=== PATIENT | male | born 1930 | race Caucasian/White ===

== ENCOUNTER 2018-05-12 03:55 | Emergency (ER) | payer MEDICARE, OTHER ==
[~2018-05-12] VITALS: Ht 172.7 cm; Wt 89.4 kg
--- NOTE | 2018-05-12 04:09 | NUR ---
Pt bib rescue 88 with c/o chest pain & shortness of breath that woke him up from sleep at 0100 today. Pt denies chest pain/shortness of breath at this time. Pt states he vomited at home. Pt denies GI/ distress. Pt placed on monitor. at bedside.
--- NOTE | 2018-05-12 04:21 | NUR ---
Dr. Steel speaking to Dr. Elizabeth (Cherry Pitter)
[2018-05-12 04:26] LABS: BASOPHILS # (AUTO) 0.1 K/uL (0.0-8.0); BASOPHILS % (AUTO) 0.8 % (0.0-2.0); EOSINOPHILS # (AUTO) 0.5 K/uL (0.0-0.7); HEMATOCRIT 38.2 % (36.7-47.1); LYMPHOCYTES # (AUTO) 1.1 K/uL (20.0-40.0); LYMPHOCYTES % (AUTO) 12.9 % (20.5-51.5); MEAN CORPUSCULAR HEMOGLOBIN 29.9 uug (23.8-33.4); MEAN CORPUSCULAR HGB CONC 34 g/dL (32.5-36.3); MEAN CORPUSCULAR VOLUME 87.9 fL (73.0-96.2); MONOCYTES # (AUTO) 0.5 K/uL (2.0-10.0); MONOCYTES % (AUTO) 6.4 % (0.0-11.0); NEUTROPHILS # (AUTO) 6.2 K/uL (1.8-8.9); NEUTROPHILS % (AUTO) 73.9 % (38.5-71.5); PLATELET COUNT (AUTO) 187 K/uL (152-348); RED BLOOD CELL COUNT(AUTO) 4.35 MIL/uL (4.06-5.63); WHITE BLOOD COUNT (AUTO) 8.4 K/uL (3.6-10.2)
--- NOTE | 2018-05-12 04:27 | NUR ---
Dr. Elizabeth speaking to Dr Steel on telephone.
[2018-05-12] MEDS ORDERED: CHOL200078 PO (04:34)
[2018-05-12] MEDS ORDERED: AMLO5TAB9 PO (04:34)
[2018-05-12] MEDS ORDERED: CLOP75TA33 PO (04:34)
[2018-05-12] MEDS ORDERED: GLIM1TAB3 PO (04:34)
[2018-05-12] MEDS ORDERED: LOSA50TA39 PO (04:34)
[2018-05-12] MEDS ORDERED: ATOR10TA PO (04:34)
[2018-05-12 04:40] LABS: ALANINE AMINOTRANSFERASE 12 U/L (16-63); ALKALINE PHOSPHATASE 85 U/L (50-136); ASPARTATE AMINOTRANSFERASE 11 U/L (15-37); BILIRUBIN,DIRECT 0.1 mg/dL (0.0-0.2); BILIRUBIN,TOTAL 0.4 mg/dL (0.2-1.0); CARBON DIOXIDE 26 mmol/L (21-32); CHLORIDE 107 mmol/L (98-107); CREATININE 2.1 mg/dL (0.6-1.3); GLUCOSE 138 mg/dL (74-106); POTASSIUM 4.3 mmol/L (3.5-5.1); TOTAL PROTEIN, SERUM 6.5 g/dL (6.4-8.2); UREA NITROGEN, BLOOD 36 mg/dL (7-18)
[2018-05-12] MEDS ORDERED: FUROSEMIDE 20 MG/2 ML VIAL IV ONE (05:00)
[2018-05-12] MEDS ORDERED: HEPARIN SODIUM,PORCINE 5,000 UNITS/ML VIAL IV ONE ×3 (05:00→05:15)
[2018-05-12] MEDS ORDERED: ASPIRIN 81 MG TAB.CHEW ONE (05:09)
[2018-05-12] MEDS ORDERED: HEPARIN SODIUM,PORCINE 5,000 UNITS/ML VIAL ONE (05:10)
[2018-05-12] MEDS ORDERED: FUROSEMIDE 40 MG/4 ML VIAL ONE (05:10)
[2018-05-12] MEDS: HEPARIN/D5W DRIP 500 ML IV ONE ×2 (05:10→05:38)
[2018-05-12] MEDS: ASPIRIN EC 81 MG TABLET.DR PO SCH ×2 (05:16→05:18)
[2018-05-12] MEDS ORDERED: HEPARIN/D5W DRIP 500 ML ONE (05:20)
--- NOTE | 2018-05-12 05:37 | NUR ---
Dr. Elizabeth speaking to Dr. Steel on telephone suggesting pt to be transferred to [facility] for higher level of care.
--- NOTE | 2018-05-12 05:43 | NUR ---
Dr. Steel on phone with Dr. Hernández (cook station for Dr. Soriano, head loft worker) who states to send pt to [facility].
--- NOTE | 2018-05-12 05:47 | NUR ---
Jade Tello paving supervisor on telephone saying she will get hold of hospitalist.
--- NOTE | 2018-05-12 06:06 | NUR ---
Dr. Steel speaking to Dr. Maciel Ortiz who accepted the pt. Pending call back from Evie Tello melter supervisor with transfer information
[2018-05-12 06:15] LABS: *BILIRUBIN,URIN NEGATIVE (NEGATIVE); *BLOOD, URINE Trace-intact (NEGATIVE); *CLARITY,URINE CLEAR (CLEAR); *COLOR,URINE YELLOW (YELLOW); *KETONES,URINE NEGATIVE (NEGATIVE); *PROTEIN,URINE 2+ (NEGATIVE); *UROBILINOGEN,URINE 0.2 E.U./dl (NORMAL); LEUKOCYTE ESTERASE ,URINE NEGATIVE (NEGATIVE); NITRITE, URINE NEGATIVE (NEGATIVE); UGLUCOSE NEGATIVE (NEGATIVE)
--- NOTE | 2018-05-12 06:21 | NUR ---
Evie (Omer excavating supervisor) called back with transfer info. pt going to Room 523A [facility]. Number for report is [phone]. Admitting is Damián Ortiz/Blair.
[2018-05-12 06:22] LABS: BACTERIA,URINE FEW /HPF (NONE SEEN); RBC,URINE NONE SEEN /HPF (0-3); SQUAMOUS EPITHELIAL CELL,UR FEW /HPF (NONE SEEN); WBC,URINE 0-3 /HPF (0-3)
--- NOTE | 2018-05-12 06:23 | NUR ---
Bk Tolentino for transfer to [facility]. ETA 1000.
--- NOTE | 2018-05-12 06:43 | NUR ---
Gave report to Danica MANNING) at [facility].
--- NOTE | 2018-05-12 07:07 | NUR ---
Report given to day shift nurse.
--- NOTE | 2018-05-12 07:16 | NUR ---
Patient is resting comfortably in bed with eyes closed, NAD noted.
--- NOTE | 2018-05-12 08:07 | NUR ---
PT WALKED TO BATHROOM W/ STEADY GAIT, DENIES SHORTNESS OF BREATH AND CHEST PAIN.
--- NOTE | 2018-05-12 08:54 | NUR ---
Patient is resting comfortably in bed with eyes closed, NAD noted.
--- NOTE | 2018-05-12 10:14 | NUR ---
Continue w/ Heprin drip, no s/s bleeding noted.
--- NOTE | 2018-05-12 11:45 | NUR ---
Spoke to Callie(supercharge repair supervisor at [facility]), YOLANDA hernández.
--- NOTE | 2018-05-12 11:50 | NUR ---
MINNIE LUCERO spoke to Dr Do (field service specialist) at [place], and was notified to stop Heprin Drip before transfering the pt.
--- NOTE | 2018-05-12 11:52 | NUR ---
Heprin drip ended at 1152.
--- NOTE | 2018-05-12 11:52 | NUR ---
Stopped heprin drip and flushed IV line on Lt hand. Report given to internal security manager at the bedside.
--- NOTE | 2018-05-12 12:07 | NUR ---
Pt left ER w/ gaurded condition, all belongings sent w/. Pt's , and daughter notified of pt's tx info.
== END 2018-05-12 12:14 | disposition short-term general hospital (02) ==
LOC: ER 03:56
DX: I21.4 Non-ST elevation (NSTEMI) myocardial infarction (principal); I11.0 Hypertensive heart disease with heart failure; I50.9 Heart failure, unspecified; Z79.01 Long term (current) use of anticoagulants; Z79.899 Other long term (current) drug therapy
CPT/HCPCS: 36415; 71045; 80048; 80076; 81001; 83880; 84484 ×2; 85025; 85730; 93005 ×3; 96365; 96366; 96375; 96376; 99291; J1644 ×2; J1940; 70030-TC; A4663

== ENCOUNTER 2018-06-12 18:20 | Inpatient (IN) | payer MEDICARE, OTHER ==
[~2018-06-12] VITALS: Ht 177.8 cm; Wt 80.3 kg
[~2018-06-12 18:20] MED LIST: AMLO5TAB9 PO; ATOR10TA PO; CHOL200078 PO; CLOP75TA33 PO; GLIM1TAB3 PO; LOSA50TA39 PO
--- NOTE | 2018-06-12 18:24 | NUR ---
PT A/OX2, BIB RA88 FROM [facility] C/O C/P. PER PARAMEDICS, PT IN RESPIRATORY DISTRESS W/ WHEEZING AND DIMINISHED LUNG SOUNDS. UPON ASSESSMENT, PT TACHY, EKG ANALYZED BY ER MD. 20G IV ACCESS ESTABLISHED IN L FOREARM CORPORATE COMPLIANCE OFFICER. ER MD AT BEDSIDE FOR MSE.
[2018-06-12] MEDS ORDERED: DILTIAZEM HCL 25 MG IV ONE (18:27)
[2018-06-12] MEDS ORDERED: DILTIAZEM HCL 25 MG IV IV ONE (18:30)
--- NOTE | 2018-06-12 18:32 | NUR ---
PT TOLERATED INITIAL DOSE OF CARDIZEM WELL. PULSE RATE DECREASED TO 105 AT THIS TIME.
--- NOTE | 2018-06-12 18:46 | NUR ---
RT AT BEDSIDE.
[2018-06-12] MEDS ORDERED: FOLI1TAB16 PO (18:47)
[2018-06-12] MEDS ORDERED: ISOS30TA9 PO (18:47)
[2018-06-12] MEDS ORDERED: TAMS-3 PO (18:47)
[2018-06-12] MEDS ORDERED: FURO-152 PO (18:47)
[2018-06-12] MEDS ORDERED: DONE10TA44 PO (18:47)
[2018-06-12] MEDS ORDERED: ASPI81TA31 PO (18:47)
[2018-06-12] MEDS ORDERED: HYDR-4076 PO (18:47)
[2018-06-12] MEDS ORDERED: ATOR20TA PO (18:47)
[2018-06-12] MEDS ORDERED: METO25TA3 PO (18:47)
[2018-06-12] MEDS ORDERED: CYAN10009 PO (18:55)
--- NOTE | 2018-06-12 18:55 | NUR ---
DIGITAL MARKETING OFFICER AND COTTON TIER AT BEDSIDE.
--- NOTE | 2018-06-12 19:01 | NUR ---
SHIFT REPORT GIVEN TO PHONG CONTRERAS.
[2018-06-12 19:10] LABS: BASOPHILS % (AUTO) 0.4 % (0.0-2.0); EOSINOPHILS # (AUTO) 0.2 K/uL (0.0-0.7); HEMATOCRIT 34.9 % (36.7-47.1); HEMOGLOBIN 11.6 g/dL (12.5-16.3); LYMPHOCYTES # (AUTO) 0.7 K/uL (20.0-40.0); MEAN CORPUSCULAR HEMOGLOBIN 29.6 uug (23.8-33.4); MEAN CORPUSCULAR HGB CONC 33 g/dL (32.5-36.3); MEAN CORPUSCULAR VOLUME 88.9 fL (73.0-96.2); MONOCYTES # (AUTO) 0.6 K/uL (2.0-10.0); MONOCYTES % (AUTO) 6.7 % (0.0-11.0); NEUTROPHILS # (AUTO) 7.1 K/uL (1.8-8.9); NEUTROPHILS % (AUTO) 82.9 % (38.5-71.5); PLATELET COUNT (AUTO) 178 K/uL (152-348); RED BLOOD CELL COUNT(AUTO) 3.92 MIL/uL (4.06-5.63); WHITE BLOOD COUNT (AUTO) 8.6 K/uL (3.6-10.2)
[2018-06-12 19:18] LABS: CARBON DIOXIDE 25 mmol/L (21-32); CHLORIDE 105 mmol/L (98-107); CREATININE 2.7 mg/dL (0.6-1.3); GLUCOSE 143 mg/dL (74-106); POTASSIUM 3.3 mmol/L (3.5-5.1); UREA NITROGEN, BLOOD 37 mg/dL (7-18)
[2018-06-12 19:30] LABS: ALANINE AMINOTRANSFERASE 29 U/L (16-63); ALKALINE PHOSPHATASE 87 U/L (50-136); ASPARTATE AMINOTRANSFERASE 27 U/L (15-37); BILIRUBIN,DIRECT 0.2 mg/dL (0.0-0.2); BILIRUBIN,TOTAL 0.5 mg/dL (0.2-1.0); TOTAL PROTEIN, SERUM 6.8 g/dL (6.4-8.2)
--- NOTE | 2018-06-12 19:38 | NUR ---
Dr. Middleton on panel call with Radha Spann NP.
--- NOTE | 2018-06-12 19:38 | NUR ---
Called [facility] to page Radha Spann NP.
[2018-06-12] MEDS ORDERED: FUROSEMIDE 20 MG/2 ML VIAL ONE ×2 (20:11)
[2018-06-12] MEDS ORDERED: FUROSEMIDE 20 MG/2 ML VIAL IV ONE (20:15)
--- NOTE | 2018-06-12 20:43 | NUR ---
Dr. Middleton speaking with Radha Spann NP.
[2018-06-12] MEDS ORDERED: LIDOCAINE 2% (UROJET) 10 ML JELLY MM ONE (20:51)
--- NOTE | 2018-06-12 21:11 | NUR ---
Inserted shah catheter, patient tolerated procedure well. Urine sample sent to lab.
[2018-06-12 21:36] LABS: *BILIRUBIN,URIN NEGATIVE (NEGATIVE); *BLOOD, URINE Trace-lysed (NEGATIVE); *CLARITY,URINE CLOUDY (CLEAR); *COLOR,URINE YELLOW (YELLOW); *KETONES,URINE NEGATIVE (NEGATIVE); *UROBILINOGEN,URINE 0.2 E.U./dl (NORMAL); LEUKOCYTE ESTERASE ,URINE 2+ (NEGATIVE); NITRITE, URINE NEGATIVE (NEGATIVE); UGLUCOSE NEGATIVE (NEGATIVE)
[2018-06-12 21:46] LABS: BACTERIA,URINE MANY /HPF (NONE SEEN); WBC,URINE 80-100 /HPF (0-3)
--- NOTE | 2018-06-12 21:58 | NUR ---
Report given to Braulio DARLING CCU.
[2018-06-12 22:47] VITALS: BP 112/70
[2018-06-12 23:49] VITALS: BP 116/71
[2018-06-13] VITALS (21 sets, daily range): BP systolic 91–117; BP diastolic 42–77
--- NOTE | 2018-06-13 00:02 | NUR ---
ALLI PAZ AT BEDSIDE FOR ADMISSION ORDERS.
[2018-06-13] MEDS ORDERED: NITROGLYCERIN 0.4 MG/TAB BOTTLE SL ONE (00:11)
[2018-06-13] MEDS: NITROGLYCERIN 0.4 MG/TAB BOTTLE SL PRN ×3 (00:12→03:13)
--- NOTE | 2018-06-13 00:12 | NUR ---
verbalized chest pain unable to scale given nitro sublingual .x2 with relief . after 2 nitro he said chest pain is gone .
--- NOTE | 2018-06-13 00:12 | NUR ---
EKG DONE BY RESPIRATORY THERAPIST AND RESULT GIVEN TO ALLI PAZ.
[2018-06-13] MEDS ORDERED: HYDROCODONE/APAP 5-325MG TABLET PO PRN (00:15)
[2018-06-13] MEDS ORDERED: ONDANSETRON 4 MG/2 ML VIAL IV PRN (00:15)
[2018-06-13] MEDS ORDERED: Z GUARD REMEDY PASTE 57 GM TUBE TOP PRN (00:15)
[2018-06-13] MEDS ORDERED: ATORVASTATIN 20 MG TABLET PO SCH (00:15)
[2018-06-13] MEDS ORDERED: MAGNESIUM HYDROXIDE 30 ML LIQUID UDC PO PRN (00:15)
[2018-06-13] MEDS ORDERED: HEPARIN SODIUM,PORCINE 5,000 UNITS/ML VIAL ONE (01:14)
[2018-06-13] MEDS ORDERED: HEPARIN SODIUM,PORCINE 10,000 UNITS/10 ML VIAL INJ ONE (02:10)
[2018-06-13] MEDS: HEPARIN/D5W DRIP 500 ML IV PRN (02:12)
[2018-06-13] MEDS ORDERED: ATORVASTATIN 40 MG TABLET PO ONE (03:00)
[2018-06-13] MEDS: ASPIRIN 325 MG TABLET PO ONE ×2 (03:07→03:14)
[2018-06-13] MEDS ORDERED: ATORVASTATIN 20 MG TABLET PO STA (03:10)
--- NOTE | 2018-06-13 03:13 | NUR ---
verbalized chest pain unable to scale just saying chest pain ,given nitro sublingual x1 .
[2018-06-13] MEDS ORDERED: METOPROLOL SUCCINATE XL 25 MG TAB.SR.24H PO ONE (03:18)
[2018-06-13] MEDS: METOPROLOL SUCCINATE XL 25 MG TAB.SR.24H PO SCH ×2 (03:18→10:01)
--- NOTE | 2018-06-13 03:30 | NUR ---
ismael Spann at nursing station and asked patient if he still have chest pain pain nod head and say no more chest pain . given Toprol ,asa , and Lipitor see emar .
[2018-06-13 05:48] LABS: CARBON DIOXIDE 26 mmol/L (21-32); CHLORIDE 104 mmol/L (98-107); CHOLESTEROL 119 mg/dL (<200); CREATININE 2.8 mg/dL (0.6-1.3); GLUCOSE 143 mg/dL (74-106); HDL CHOLESTEROL 51 mg/dL (40-60); MAGNESIUM 1.6 mg/dL (1.8-2.4); PHOSPHOROUS 4.6 mg/dL (2.5-4.9); POTASSIUM 3.6 mmol/L (3.5-5.1); TRIGLYCERIDES 58 MG/DL (30-150); UREA NITROGEN, BLOOD 37 mg/dL (7-18)
[2018-06-13 05:59] LABS: BASOPHILS % (AUTO) 0.5 % (0.0-2.0); EOSINOPHILS # (AUTO) 0.1 K/uL (0.0-0.7); EOSINOPHILS % (AUTO) 0.6 % (0.0-7.0); HEMATOCRIT 31.5 % (36.7-47.1); HEMOGLOBIN 10.8 g/dL (12.5-16.3); LYMPHOCYTES # (AUTO) 0.5 K/uL (20.0-40.0); LYMPHOCYTES % (AUTO) 4.8 % (20.5-51.5); MEAN CORPUSCULAR HEMOGLOBIN 30.2 uug (23.8-33.4); MEAN CORPUSCULAR HGB CONC 34 g/dL (32.5-36.3); MEAN CORPUSCULAR VOLUME 88.2 fL (73.0-96.2); MONOCYTES # (AUTO) 0.8 K/uL (2.0-10.0); MONOCYTES % (AUTO) 7.9 % (0.0-11.0); NEUTROPHILS # (AUTO) 8.4 K/uL (1.8-8.9); NEUTROPHILS % (AUTO) 86.2 % (38.5-71.5); PLATELET COUNT (AUTO) 206 K/uL (152-348); RED BLOOD CELL COUNT(AUTO) 3.57 MIL/uL (4.06-5.63); WHITE BLOOD COUNT (AUTO) 9.7 K/uL (3.6-10.2)
--- NOTE | 2018-06-13 07:00 | NUR ---
ENDORSED PATIENT IN BED CHEST PAIN FREE , BREATHING EVEN AND UNLABORED.CALL LIGHT PLACED WITH IN REACH ,.
[2018-06-13] MEDS ORDERED: HEPARIN SODIUM,PORCINE 5,000 UNITS/ML VIAL IV PRN (08:15)
[2018-06-13] MEDS ORDERED: FUROSEMIDE 20 MG TABLET PO SCH (09:00)
[2018-06-13] MEDS ORDERED: METOPROLOL SUCCINATE XL 25 MG TAB.SR.24H PO SCH (09:00)
[2018-06-13] MEDS ORDERED: CLOPIDOGREL 75 MG TABLET PO ONE (09:30)
--- NOTE | 2018-06-13 09:30 | NUR ---
seen by Dr Ugarte, cardiology. 12 lead ekg ordered and done. am routine lasix discontinued and bumex given IV instead. continued to infuase heparing iv drip at 1215 units per hr. will recheck ptt soon.2 d echo done at the bedside. EF 20 -30%. Plavix also ordered and given. Addendum: 06/13/18 at 1653 by RONA AREVALO RN Amended: Links added. Addendum: 06/13/18 at 1708 by RONA AREVALO RN Amended: Links added. Addendum: 06/13/18 at 1721 by RONA AREVALO RN Amended: Links added.
[2018-06-13] MEDS: TAMSULOSIN HCL 0.4 MG CAP.SR.24H PO SCH (09:58)
[2018-06-13] MEDS: ISOSORBIDE MONONITRATE 30 MG TAB.SR.24H PO SCH (09:59)
[2018-06-13] MEDS: ASPIRIN 81 MG TAB.CHEW PO SCH (10:00)
[2018-06-13] MEDS ORDERED: BUMETANIDE 1 MG/4 ML VIAL IV ONE (10:00)
--- NOTE | 2018-06-13 10:30 | NUR ---
seen by Dr ellsworth. orders received. Shawna salinas Addendum: 06/13/18 at 1708 by RONA AREVALO RN Amended: Links added. Addendum: 06/13/18 at 1721 by RONA AREVALO RN Amended: Links added.
--- NOTE | 2018-06-13 10:30 | NUR ---
seen by Dr ellsworth. orders received. Shawna hernández started and completed. Addendum: 06/13/18 at 1708 by RONA AREVALO RN Amended: Links added. Addendum: 06/13/18 at 1721 by RONA AREVALO RN Amended: Links added.
--- NOTE | 2018-06-13 10:39 | NUR ---
PTT 71.5 heparin drip decreased to 1115 units per hour. next ptt draw 1830 Addendum: 06/13/18 at 1042 by RONA AREVALO RN Amended: Links added.
[2018-06-13] MEDS ORDERED: BUMETANIDE INJ 3 MG in IV DEXTROSE 5% 48 ML IV ONE (11:30)
[2018-06-13] MEDS: CEFTRIAXONE 1 G in IV DEXTROSE 5% 50 ML IV SCH (14:32)
[2018-06-13] MEDS: CHOLECALCIFEROL 1,000 UNIT TABLET PO SCH (14:33)
--- NOTE | 2018-06-13 15:00 | NUR ---
remains hypothermicPing vallejo Addendum: 06/13/18 at 1733 by RONA AREVALO RN Amended: Hailey added. Addendum: 06/13/18 at 1737 by RONA AREVALO RN Amended: Hailey added. Addendum: 06/13/18 at 1737 by RONA AREVALO RN Amended: Links added.
[2018-06-13] MEDS ORDERED: IV NORMAL SALINE 250 ML IV PRN (16:45)
--- NOTE | 2018-06-13 17:16 | NUR ---
follow up call to medical records [phone] [address] reports from [facility]. Addendum: 06/13/18 at 1721 by RONA AREVALO RN Amended: Links added.
--- NOTE | 2018-06-13 17:37 | NUR ---
had an episode of shortness of breath, advised diuretic, bumex drip is infusing. o2 maintained at 2liters nasal cannula. Addendum: 06/13/18 at 1737 by RONA AREVALO RN Amended: Links added. Addendum: 06/13/18 at 1737 by RONA AREVALO RN Amended: Links added.
[2018-06-13 18:21] LABS: CARBON DIOXIDE 27 mmol/L (21-32); CHLORIDE 104 mmol/L (98-107); CREATININE 2.9 mg/dL (0.6-1.3); GLUCOSE 150 mg/dL (74-106); MAGNESIUM 1.8 mg/dL (1.8-2.4); POTASSIUM 4.1 mmol/L (3.5-5.1); UREA NITROGEN, BLOOD 41 mg/dL (7-18)
--- NOTE | 2018-06-13 19:23 | NUR ---
ptt 59 sec, no change in heparin drip rate at 1115 units/hr Addendum: 06/13/18 at 1923 by RONA AREVALO RN Amended: Links added.
--- NOTE | 2018-06-13 20:00 | NUR ---
RECEIVED PT. AWAKE & ALERT W/ PERIODS OF CONFUSION & FORGETFULNESS. CALM & FOLLOWS TO COMMAND. ON O2 @ 2L NC W/ O2 SAT OF 97%. ON HEPARIN DRIP @ 1115 UNITS /HR ON L HAND. HEP LOCK INTACT & PATENT ON RFA. NOT IN ANY DISTRESS.
[2018-06-13] MEDS: CYANOCOBALAMIN 1,000 MCG TABLET PO SCH (20:27)
[2018-06-13] MEDS: ATORVASTATIN 20 MG TABLET PO SCH (20:27)
[2018-06-13] MEDS: DONEPEZIL 10 MG TABLET PO SCH (20:27)
[2018-06-13] MEDS: FOLIC ACID 1 MG TABLET PO SCH (20:27)
[2018-06-13] MEDS: ACETAMINOPHEN 325 MG TABLET PO PRN (20:35)
[2018-06-13] MEDS: ZOLPIDEM 5 MG TABLET PO PRN (20:36)
--- NOTE | 2018-06-13 22:18 | NUR ---
HS CARE DONE.REPOSITIONED ON HIS SIDE W/ HOB ELEVATED. NOT IN ANY DISTRESS.
[2018-06-14] VITALS (24 sets, daily range): BP systolic 94–132; BP diastolic 52–82
[2018-06-14] MEDS: HEPARIN/D5W DRIP 500 ML IV PRN ×2 (00:23→22:53)
--- NOTE | 2018-06-14 02:00 | NUR ---
STARTED HEP LOCK ON RFA W/ # 22 ANGIO CATH.
--- NOTE | 2018-06-14 04:23 | NUR ---
AM CARE DONE. REPOSITIONED W/ HOB ELEVATED. NOT IN ANY DISTRESS.
[2018-06-14 06:18] LABS: BASOPHILS # (AUTO) 0.1 K/uL (0.0-8.0); BASOPHILS % (AUTO) 0.8 % (0.0-2.0); EOSINOPHILS # (AUTO) 0.3 K/uL (0.0-0.7); EOSINOPHILS % (AUTO) 3.2 % (0.0-7.0); HEMATOCRIT 33.4 % (36.7-47.1); HEMOGLOBIN 11.2 g/dL (12.5-16.3); LYMPHOCYTES # (AUTO) 0.7 K/uL (20.0-40.0); LYMPHOCYTES % (AUTO) 7.5 % (20.5-51.5); MEAN CORPUSCULAR HEMOGLOBIN 29.6 uug (23.8-33.4); MEAN CORPUSCULAR HGB CONC 33 g/dL (32.5-36.3); MEAN CORPUSCULAR VOLUME 88.5 fL (73.0-96.2); MONOCYTES # (AUTO) 0.9 K/uL (2.0-10.0); MONOCYTES % (AUTO) 9.3 % (0.0-11.0); NEUTROPHILS # (AUTO) 7.4 K/uL (1.8-8.9); NEUTROPHILS % (AUTO) 79.2 % (38.5-71.5); PLATELET COUNT (AUTO) 195 K/uL (152-348); RED BLOOD CELL COUNT(AUTO) 3.78 MIL/uL (4.06-5.63); WHITE BLOOD COUNT (AUTO) 9.4 K/uL (3.6-10.2)
--- NOTE | 2018-06-14 06:23 | NUR ---
RESTING QUITELY . V/S STABLE.
[2018-06-14 06:37] LABS: CARBON DIOXIDE 26 mmol/L (21-32); CHLORIDE 104 mmol/L (98-107); CREATININE 2.9 mg/dL (0.6-1.3); GLUCOSE 119 mg/dL (74-106); MAGNESIUM 1.8 mg/dL (1.8-2.4); PHOSPHOROUS 4.9 mg/dL (2.5-4.9); POTASSIUM 3.4 mmol/L (3.5-5.1); UREA NITROGEN, BLOOD 41 mg/dL (7-18)
[2018-06-14] MEDS: ASPIRIN 81 MG TAB.CHEW PO SCH (09:14)
[2018-06-14] MEDS: ISOSORBIDE MONONITRATE 30 MG TAB.SR.24H PO SCH (09:15)
[2018-06-14] MEDS: CLOPIDOGREL 75 MG TABLET PO SCH (09:15)
[2018-06-14] MEDS: TAMSULOSIN HCL 0.4 MG CAP.SR.24H PO SCH (09:15)
[2018-06-14] MEDS: CHOLECALCIFEROL 1,000 UNIT TABLET PO SCH (09:16)
[2018-06-14] MEDS: METOPROLOL SUCCINATE XL 25 MG TAB.SR.24H PO SCH (09:16)
--- NOTE | 2018-06-14 10:26 | NUR ---
Pt.was seen by Dr. Avendano with new orders.
--- NOTE | 2018-06-14 10:32 | NUR ---
Pt.was seen by .
[2018-06-14] MEDS: IPRATROPIUM BROMIDE 0.5 MG/2.5 ML NEBU NEB SCH ×2 (11:48→19:33)
[2018-06-14] MEDS ORDERED: POTASSIUM CHLORIDE 20 MEQ TAB.PRT.SR PO ONE (12:15)
--- NOTE | 2018-06-14 12:52 | NUR ---
Pt.was seen by with new orders.
--- NOTE | 2018-06-14 13:04 | NUR ---
Daughter at bedside,updated with pt.condition and plan of care.
--- NOTE | 2018-06-14 13:22 | NUR ---
PT.WAS SEEN BY SUPERINTENDENT AMMUNITION STORAGE: JG PAZ,DAUGHTER VANESSA AT BEDSIDE.
[2018-06-14] MEDS: CEFTRIAXONE 1 G in IV DEXTROSE 5% 50 ML IV SCH (14:19)
--- NOTE | 2018-06-14 15:30 | NUR ---
Pt.sleeping,no s/s of distress.
--- NOTE | 2018-06-14 18:17 | NUR ---
Family at bedside,updated with pt.condition and plan of care.
--- NOTE | 2018-06-14 19:30 | NUR ---
Report received. Patient admitted 06/12/18 for SOB, rapid heart rate. DX: CHF, NSTEMI. AAO, on continuous Heparin drip at 1115 units/H. No s/s of bleeding. O2 1 L NC; denies SOB or chest discomfort. Assessment completed. Addendum: 06/15/18 at 0431 by NOEL PEREZ RN Amended: Links added. Addendum: 06/15/18 at 0436 by NOEL PEREZ RN Amended: Links added.
[2018-06-14] MEDS: CYANOCOBALAMIN 1,000 MCG TABLET PO SCH (20:49)
[2018-06-14] MEDS: ATORVASTATIN 20 MG TABLET PO SCH (20:49)
[2018-06-14] MEDS: FOLIC ACID 1 MG TABLET PO SCH (20:49)
[2018-06-14] MEDS: DONEPEZIL 10 MG TABLET PO SCH (20:49)
--- NOTE | 2018-06-14 21:30 | NUR ---
Patient daughters visited. Patient sleeping intermittently. NAD noted.
[2018-06-15] VITALS (20 sets, daily range): BP systolic 103–128; BP diastolic 46–79
--- NOTE | 2018-06-15 01:00 | NUR ---
Incontinent of soft brown stools. Am care given; patient cooperative. Tolerated care well. No c/o chest pains.
--- NOTE | 2018-06-15 04:00 | NUR ---
Sat above 94% on 1L NC; O2 dc'd. Will monitor. Addendum: 06/15/18 at 0436 by NOEL PEREZ RN Amended: Links added.
[2018-06-15 05:31] LABS: BASOPHILS # (AUTO) 0.1 K/uL (0.0-8.0); BASOPHILS % (AUTO) 0.8 % (0.0-2.0); EOSINOPHILS # (AUTO) 0.4 K/uL (0.0-0.7); EOSINOPHILS % (AUTO) 5.6 % (0.0-7.0); HEMATOCRIT 31.7 % (36.7-47.1); HEMOGLOBIN 10.8 g/dL (12.5-16.3); LYMPHOCYTES % (AUTO) 14.1 % (20.5-51.5); MEAN CORPUSCULAR HEMOGLOBIN 29.7 uug (23.8-33.4); MEAN CORPUSCULAR HGB CONC 34 g/dL (32.5-36.3); MEAN CORPUSCULAR VOLUME 87.7 fL (73.0-96.2); MONOCYTES # (AUTO) 0.5 K/uL (2.0-10.0); MONOCYTES % (AUTO) 7.3 % (0.0-11.0); NEUTROPHILS # (AUTO) 5.3 K/uL (1.8-8.9); NEUTROPHILS % (AUTO) 72.2 % (38.5-71.5); PLATELET COUNT (AUTO) 203 K/uL (152-348); RED BLOOD CELL COUNT(AUTO) 3.62 MIL/uL (4.06-5.63); WHITE BLOOD COUNT (AUTO) 7.4 K/uL (3.6-10.2)
[2018-06-15 05:40] LABS: ALANINE AMINOTRANSFERASE 24 U/L (16-63); ALKALINE PHOSPHATASE 73 U/L (50-136); ASPARTATE AMINOTRANSFERASE 20 U/L (15-37); BILIRUBIN,TOTAL 0.3 mg/dL (0.2-1.0); CARBON DIOXIDE 28 mmol/L (21-32); CHLORIDE 103 mmol/L (98-107); CREATININE 2.8 mg/dL (0.6-1.3); GLUCOSE 106 mg/dL (74-106); MAGNESIUM 1.8 mg/dL (1.8-2.4); PHOSPHOROUS 4.3 mg/dL (2.5-4.9); POTASSIUM 3.5 mmol/L (3.5-5.1); TOTAL PROTEIN, SERUM 5.9 g/dL (6.4-8.2); UREA NITROGEN, BLOOD 42 mg/dL (7-18)
--- NOTE | 2018-06-15 06:00 | NUR ---
VS stable. Hardly slept during the night. No occurrence of chest pains. Attempted to use the bedpan x2 for BM No result. Patient was incontinent of large soft BM earlier.
[2018-06-15] MEDS: IPRATROPIUM BROMIDE 0.5 MG/2.5 ML NEBU NEB SCH ×3 (08:19→19:18)
[2018-06-15] MEDS: METOPROLOL SUCCINATE XL 25 MG TAB.SR.24H PO SCH (08:37)
[2018-06-15] MEDS: ASPIRIN 81 MG TAB.CHEW PO SCH (08:38)
[2018-06-15] MEDS: CLOPIDOGREL 75 MG TABLET PO SCH (08:38)
[2018-06-15] MEDS: TAMSULOSIN HCL 0.4 MG CAP.SR.24H PO SCH (08:38)
[2018-06-15] MEDS: ISOSORBIDE MONONITRATE 30 MG TAB.SR.24H PO SCH (08:38)
--- NOTE | 2018-06-15 09:00 | NUR ---
Patient PTT 73, and Heparin drip decreased 100 units to 1015. Patient is awake and alert, oriented x 4. SR on monitor without ectopy. On RA, and resp even and unlabored without distress. No co chest pain. Bob Reeves RN
[2018-06-15] MEDS ORDERED: POTASSIUM CHLORIDE 20 MEQ POWDER PACKET PO ONE (11:00)
--- NOTE | 2018-06-15 11:00 | NUR ---
seen by dr morgan. no orders received Addendum: 06/15/18 at 1507 by RONA AREVALO RN Amended: Links added.
--- NOTE | 2018-06-15 12:24 | NUR ---
WOUND CARE CONSULT: PT PRESENTS WITH RASH TO PERINEAL, PERIANAL AREAS. PT ALSO NOTED TO HAVE VERY BONY SACRAL AREA WITH BLANCHABLE REDNESS. RECOMMENDATIONS MADE FOR SKIN PROTECTION AND SKIN CARE. DISCUSSED WITH NURSING STAFF. PT ON FIRST STEP [facility]. WILL SEE PRN. LUCERO IN AGREEMENT WITH PLAN OF CARE. Addendum: 06/15/18 at 1225 by KAT CAVAZOS RN Amended: Links added.
--- NOTE | 2018-06-15 12:45 | NUR ---
seen by Dr Hernandez. no orders received. talked to family members at length. aware of patient's low urin output Addendum: 06/15/18 at 1506 by RONA AREVALO RN Amended: Links added. Addendum: 06/15/18 at 1507 by RONA AREVALO RN Amended: Links added.
--- NOTE | 2018-06-15 14:30 | NUR ---
Patient PTT 59.2, and heparin drip stays say rate 1015, and PTT in AM. Bob Reeves RN
[2018-06-15] MEDS: CEFTRIAXONE 1 G in IV DEXTROSE 5% 50 ML IV SCH (15:09)
[2018-06-15] MEDS: CHOLECALCIFEROL 1,000 UNIT TABLET PO SCH (15:31)
[2018-06-15] MEDS: CLOTRIMAZOLE 1% CREAM 30 GM TUBE TOP SCH (15:31)
--- NOTE | 2018-06-15 15:37 | NUR ---
klor 20 meq given po for k3.5 Addendum: 06/15/18 at 1537 by RONA AREVALO RN Amended: Links added.
[2018-06-15] MEDS ORDERED: METO-356 PO (16:01)
[2018-06-15] MEDS ORDERED: Nitroglycerin Sl SL (16:01)
[2018-06-15] MEDS ORDERED: HEPA50007 IV (16:01)
--- NOTE | 2018-06-15 16:30 | NUR ---
Patient transferring to tele, and endorsed report to Florence RN.
--- NOTE | 2018-06-15 19:20 | NUR ---
RECEIVED PATIENT LYING IN BED. AAOX4. IN NO ACUTE DISTRESS. DENIES ANY PAIN OR SOB AT THIS TIME. NSR ON TELE AT 79/MIN. IV SITE ON RIGHT FA AND LEFT FA INTACT AND PATENT. HEPARIN DRIP ONGOING. SAFETY MEASURE INITIATED AND CALL CORDOVA WITHIN REACH.
[2018-06-15] MEDS: CYANOCOBALAMIN 1,000 MCG TABLET PO SCH (20:55)
[2018-06-15] MEDS: ATORVASTATIN 20 MG TABLET PO SCH (20:55)
[2018-06-15] MEDS: DONEPEZIL 10 MG TABLET PO SCH (20:55)
[2018-06-15] MEDS: FOLIC ACID 1 MG TABLET PO SCH (20:55)
[2018-06-16] VITALS: BP 121/57
[2018-06-16] MEDS: ZOLPIDEM 5 MG TABLET PO PRN (00:15)
[2018-06-16] MEDS ORDERED: HEPARIN/D5W DRIP 500 ML ONE (00:28)
[2018-06-16] MEDS: HEPARIN/D5W DRIP 500 ML IV PRN (00:30)
--- NOTE | 2018-06-16 00:49 | NUR ---
NEW IV BAG OF HEPARIN STARTED AT 0030.
[2018-06-16] MEDS: IPRATROPIUM BROMIDE 0.5 MG/2.5 ML NEBU NEB SCH ×4 (00:52→20:52)
--- NOTE | 2018-06-16 00:55 | NUR ---
Unscheduled resp neb tx adm'd at this time per daughter's request, who is at bedside.
--- NOTE | 2018-06-16 00:57 | NUR ---
PATIENT COMPLAINING OF HEART BURN. INFORMED ANODE ADJUSTER TRETIAK WITH NEW ORDER GIVEN AND WILL CARRY OUT.
[2018-06-16] MEDS ORDERED: CALCIUM CARBONATE 500 MG TAB.CHEW PO PRN (01:00)
--- NOTE | 2018-06-16 01:30 | NUR ---
RECEIVED TELEPHONE CALL FROM KALLIE FROM [facility] UPDATED THIS NURSE THAT PATIENT STILL AWAITING FOR BED AVAILABILITY WHICH WILL MOST LIKELY BE IN THE MORNING TODAY. THIS NURSE THANK KALLIE FOR INFO.
[2018-06-16 04:00] VITALS: BP 133/70
--- NOTE | 2018-06-16 05:35 | NUR ---
PATIENT NOTED WITH INCREASE CONFUSION AND RESTLESSNESS AND TRIED TO GET OOB. ALLI KRISHNA MADE AWARE WITH ORDER FOR ATIVAN 1MG IVX1 DOSE. ORDER NOTED AND WILL CARRY OUT.
[2018-06-16] MEDS ORDERED: LORAZEPAM 2 MG/1 ML VIAL IV ONE (05:45)
--- NOTE | 2018-06-16 06:20 | NUR ---
AAOX3 WITH PERIODS OF CONFUSION. NO FURTHER RESTLESSNESS NOTED AT THIS TIME. [place]. IN NO ACUTE DISTRESS. DENIES ANY PAIN OR SOB. NSR ON TELE AT 88/MIN. IV SITE ON RIGHT FA AND LEFT FA INTACT AND PATENT. HEPARIN DRIP ONGOING. FC INTACT AND DRAINING VIA GRAVITY. SAFETY MEASURE MAINTAINED AND CALL CORDOVA WITHIN REACH.
[2018-06-16 06:50] LABS: BASOPHILS # (AUTO) 0.1 K/uL (0.0-8.0); BASOPHILS % (AUTO) 0.8 % (0.0-2.0); EOSINOPHILS # (AUTO) 0.4 K/uL (0.0-0.7); EOSINOPHILS % (AUTO) 5.7 % (0.0-7.0); HEMOGLOBIN 10.3 g/dL (12.5-16.3); LYMPHOCYTES # (AUTO) 1.2 K/uL (20.0-40.0); LYMPHOCYTES % (AUTO) 16.1 % (20.5-51.5); MEAN CORPUSCULAR HEMOGLOBIN 29.1 uug (23.8-33.4); MEAN CORPUSCULAR HGB CONC 33 g/dL (32.5-36.3); MEAN CORPUSCULAR VOLUME 87.3 fL (73.0-96.2); MONOCYTES # (AUTO) 0.5 K/uL (2.0-10.0); MONOCYTES % (AUTO) 7.2 % (0.0-11.0); NEUTROPHILS # (AUTO) 5.1 K/uL (1.8-8.9); NEUTROPHILS % (AUTO) 70.2 % (38.5-71.5); PLATELET COUNT (AUTO) 213 K/uL (152-348); RED BLOOD CELL COUNT(AUTO) 3.55 MIL/uL (4.06-5.63); WHITE BLOOD COUNT (AUTO) 7.2 K/uL (3.6-10.2)
[2018-06-16 07:00] LABS: CARBON DIOXIDE 27 mmol/L (21-32); CHLORIDE 103 mmol/L (98-107); CREATININE 2.6 mg/dL (0.6-1.3); GLUCOSE 105 mg/dL (74-106); MAGNESIUM 1.8 mg/dL (1.8-2.4); PHOSPHOROUS 4.7 mg/dL (2.5-4.9); POTASSIUM 3.3 mmol/L (3.5-5.1); UREA NITROGEN, BLOOD 41 mg/dL (7-18)
--- NOTE | 2018-06-16 07:15 | NUR ---
TELEPHONE CALL FROM PONY RIDE OPERATOR LINO AND REPORTED CRITICAL LAB VALUE FOR TROPONIN OF13.715. TROPONIN TRENDING DOWN. DAY SHIFT NURSE ANTWON MADE AWARE AND WILL FOLLOW UP.
[2018-06-16] MEDS ORDERED: POTASSIUM CHLORIDE 10 MEQ TAB.PRT.SR PO ONE (08:15)
[2018-06-16] MEDS: CHOLECALCIFEROL 1,000 UNIT TABLET PO SCH (09:22)
[2018-06-16] MEDS: TAMSULOSIN HCL 0.4 MG CAP.SR.24H PO SCH (09:23)
[2018-06-16] MEDS: METOPROLOL SUCCINATE XL 25 MG TAB.SR.24H PO SCH (09:23)
[2018-06-16] MEDS: CLOPIDOGREL 75 MG TABLET PO SCH (09:24)
[2018-06-16] MEDS: ISOSORBIDE MONONITRATE 30 MG TAB.SR.24H PO SCH (09:24)
[2018-06-16] MEDS: ASPIRIN 81 MG TAB.CHEW PO SCH (09:24)
[2018-06-16] MEDS: CLOTRIMAZOLE 1% CREAM 30 GM TUBE TOP SCH ×2 (09:32→17:07)
[2018-06-16 11:48] VITALS: BP 128/67
[2018-06-16] MEDS: CEphaleXIN 250 MG CAPSULE PO SCH ×2 (14:18→21:01)
[2018-06-16 15:47] VITALS: BP 114/65
--- NOTE | 2018-06-16 19:20 | NUR ---
RECEIVED PATIENT LYING IN BED. ASLEEP, AROUSE TO VERBAL AND TACTILE STIMULI, BUT FALLS BACK TO SLEEP. IN NO ACUTE DISTRESS. NO SIGNS OR SYMPTOMS OF ANY PAIN OR SOB. NSR ON TELE AT 82/MIN. IV SITE ON RIGHT FA AND LEFT FA INTACT AND PATENT. HEPARIN DRIP ONGOING. SAFETY MEASURE INITIATED AND CALL CORDOVA WITHIN REACH.
[2018-06-16 20:00] VITALS: BP 116/65
[2018-06-16] MEDS: DONEPEZIL 10 MG TABLET PO SCH (20:49)
[2018-06-16] MEDS: FOLIC ACID 1 MG TABLET PO SCH (20:49)
[2018-06-16] MEDS: CYANOCOBALAMIN 1,000 MCG TABLET PO SCH (20:49)
[2018-06-16] MEDS: ATORVASTATIN 20 MG TABLET PO SCH (20:49)
[2018-06-17] VITALS: BP 122/59
[2018-06-17] MEDS: ZOLPIDEM 5 MG TABLET PO PRN (00:57)
[2018-06-17] MEDS: ACETAMINOPHEN 325 MG TABLET PO PRN (00:57)
--- NOTE | 2018-06-17 01:47 | NUR ---
RECEIVED TELEPHONE CALL FROM KALLIE FROM [facility] UPDATED THIS NURSE THAT PATIENT STILL AWAITING FOR BED AVAILABILITY. WILL CALL [facility] ONCE BED IS AVAILABLE.
[2018-06-17] MEDS: HEPARIN/D5W DRIP 500 ML IV PRN ×3 (01:52→15:18)
[2018-06-17 04:00] VITALS: BP 133/63
[2018-06-17] MEDS: CEphaleXIN 250 MG CAPSULE PO SCH ×2 (05:04→15:09)
--- NOTE | 2018-06-17 06:05 | NUR ---
AAOX3 WITH PERIODS OF CONFUSION. NO ANXIETY NOTED. IN NO ACUTE DISTRESS. DENIES ANY PAIN OR SOB. NSR ON TELE AT 85/MIN. IV SITE ON RIGHT FA AND LEFT FA INTACT AND PATENT. HEPARIN DRIP ONGOING. NO ADVERSE EFFECT FROM PO ABX.FC INTACT AND DRAINING VIA GRAVITY. SAFETY MEASURE MAINTAINED AND CALL CORDOVA WITHIN REACH.
[2018-06-17 06:36] LABS: BASOPHILS # (AUTO) 0.1 K/uL (0.0-8.0); EOSINOPHILS # (AUTO) 0.4 K/uL (0.0-0.7); HEMATOCRIT 32.2 % (36.7-47.1); LYMPHOCYTES # (AUTO) 1.1 K/uL (20.0-40.0); LYMPHOCYTES % (AUTO) 15.9 % (20.5-51.5); MEAN CORPUSCULAR HEMOGLOBIN 29.8 uug (23.8-33.4); MEAN CORPUSCULAR HGB CONC 34 g/dL (32.5-36.3); MEAN CORPUSCULAR VOLUME 87.1 fL (73.0-96.2); MONOCYTES # (AUTO) 0.4 K/uL (2.0-10.0); MONOCYTES % (AUTO) 6.3 % (0.0-11.0); NEUTROPHILS # (AUTO) 4.9 K/uL (1.8-8.9); NEUTROPHILS % (AUTO) 70.8 % (38.5-71.5); PLATELET COUNT (AUTO) 238 K/uL (152-348); RED BLOOD CELL COUNT(AUTO) 3.69 MIL/uL (4.06-5.63)
[2018-06-17 06:51] LABS: CARBON DIOXIDE 26 mmol/L (21-32); CHLORIDE 104 mmol/L (98-107); CREATININE 2.4 mg/dL (0.6-1.3); GLUCOSE 114 mg/dL (74-106); POTASSIUM 3.6 mmol/L (3.5-5.1); UREA NITROGEN, BLOOD 38 mg/dL (7-18)
[2018-06-17] MEDS: IPRATROPIUM BROMIDE 0.5 MG/2.5 ML NEBU NEB SCH ×2 (07:01→13:03)
--- NOTE | 2018-06-17 07:30 | NUR ---
patient received lying in bed at this time, respiratory treatment in process falling asleep intermittently, patient arousable. patient on air mattress, call light with in reach. patient with shah catheter draining, IV line on left forearm patent. Heparin drip running at 1015 units/hr at this time. continue to monitor
--- NOTE | 2018-06-17 08:00 | NUR ---
PTT lab 41.4 this am, per protocol adjust current Heparin drip , increase 150 units/hr, current rate 1015 unit/hr increase to 1165 units hr, order faxed to pharmacy.
[2018-06-17 08:48] VITALS: BP 128/63
--- NOTE | 2018-06-17 08:50 | NUR ---
Patient awake and alert this am, oriented to person place time and situation, patient noted with minimal blood in urine catheter, Daniel Winter N.P. rounding notified, continue to monitor, H&H stable.
[2018-06-17] MEDS: CLOPIDOGREL 75 MG TABLET PO SCH (08:59)
[2018-06-17] MEDS: ASPIRIN 81 MG TAB.CHEW PO SCH (09:00)
[2018-06-17] MEDS: CHOLECALCIFEROL 1,000 UNIT TABLET PO SCH (09:00)
[2018-06-17] MEDS: TAMSULOSIN HCL 0.4 MG CAP.SR.24H PO SCH (09:00)
[2018-06-17] MEDS: ISOSORBIDE MONONITRATE 30 MG TAB.SR.24H PO SCH (09:00)
[2018-06-17] MEDS: METOPROLOL SUCCINATE XL 25 MG TAB.SR.24H PO SCH (09:00)
[2018-06-17] MEDS: CLOTRIMAZOLE 1% CREAM 30 GM TUBE TOP SCH ×3 (09:01→18:13)
--- NOTE | 2018-06-17 11:00 | NUR ---
patient urine in shah line and bag frequently checked to monitor for any increase in blood in catheter from this am, minimal noted, no increase in blood in shah catheter, continue to monitor. no distress noted. patient sleeping intermittently, arousable. call light within reach
[2018-06-17 11:26] VITALS: BP 112/58
--- NOTE | 2018-06-17 12:23 | NUR ---
patient sleeping intermittently , offered lunch, refused at this time, ask for it to be brought later will continue to offer patient, denies any distress.
--- NOTE | 2018-06-17 15:04 | NUR ---
PTT 55.4 by Heparin Protocol, no change, continue Heparin Drip at current rate 1165 units/hr next PTT in am on 06/18/18.
[2018-06-17 15:29] VITALS: BP 114/67
--- NOTE | 2018-06-17 16:53 | NUR ---
patient scheduled for transfer to a Higher level of care, [facility], going to room 5123, 5th floor [facility]. Patient consent obtained for transfer, patient acknowledges and understands reason for transfer, Daughter Cait informed of transfer.
--- NOTE | 2018-06-17 17:45 | NUR ---
Report provided to [facility] Nurse, Jyothi Montoya RN, contacted thru facility community health coordinator number, .
--- NOTE | 2018-06-17 18:30 | NUR ---
patient discharged to to Higher Level of care, [facility], room [address] [facility]. report Provided to PHONG Sneed on [facility]. patient remained alert and oriented, compliant with meds, assisted with care, adjust done today to Heparin Drip per unti protocol endorsed to Nurse. patient vital signs remained stable today, denied any distress. questions and concerns addressed to transporting unit. Daughter Cait at beside aware of discharge
== END 2018-06-17 18:32 | disposition short-term general hospital (02) | DRG 280 ==
LOC: ER 18:20 → CCU 22:19 → TELE 06-15 17:19
PROVIDERS: ADMIT Nurse Practitioner Acute Care; ATTEND Nurse Practitioner Acute Care
PROC: 5A09357 Assistance with Respiratory Ventilation, Less than 24 Consecutive Hours, Continuous Positive Airway Pressure (ICD-10-PCS; principal; 2018-06-12)
DX: I21.4 Non-ST elevation (NSTEMI) myocardial infarction (principal); I50.23 Acute on chronic systolic (congestive) heart failure; N17.0 Acute kidney failure with tubular necrosis; I13.0 Hypertensive heart and chronic kidney disease with heart failure and stage 1 through stage 4 chronic kidney disease, or unspecified chronic kidney disease; E44.0 Moderate protein-calorie malnutrition; E87.2 Acidosis; I42.9 Cardiomyopathy, unspecified; E78.5 Hyperlipidemia, unspecified; E87.6 Hypokalemia; F03.90 Unspecified dementia, unspecified severity, without behavioral disturbance, psychotic disturbance, mood disturbance, and anxiety; I25.10 Atherosclerotic heart disease of native coronary artery without angina pectoris; I25.2 Old myocardial infarction; I48.91 Unspecified atrial fibrillation; N18.9 Chronic kidney disease, unspecified; Z86.73 Personal history of transient ischemic attack (TIA), and cerebral infarction without residual deficits; Z79.84 Long term (current) use of oral hypoglycemic drugs; E11.22 Type 2 diabetes mellitus with diabetic chronic kidney disease; D63.8 Anemia in other chronic diseases classified elsewhere; Z79.82 Long term (current) use of aspirin; Z79.02 Long term (current) use of antithrombotics/antiplatelets; E88.09 Other disorders of plasma-protein metabolism, not elsewhere classified; Z68.25 Body mass index [BMI] 25.0-25.9, adult; N40.0 Benign prostatic hyperplasia without lower urinary tract symptoms; Z87.891 Personal history of nicotine dependence; Z82.49 Family history of ischemic heart disease and other diseases of the circulatory system; Z95.5 Presence of coronary angioplasty implant and graft
CPT/HCPCS: 36415; 70030-TC; 71045; 83605; 83735; 84100; 85025; 85730; 87040; 87077; 87086; 93005; 93307; 94640; A4663; C1758; G0378; J0696; J1644; J1940; J2060; J3490; J3590; J7030; J7050; J7060

== ENCOUNTER 2018-12-09 13:07 | Inpatient (IN) | payer MEDICARE, OTHER ==
[~2018-12-09] VITALS: Ht 177.8 cm; Wt 79.0 kg
[~2018-12-09 13:07] MED LIST changes: -AMLO5TAB9 PO; +ASPI81TA31 PO; -ATOR10TA PO; +ATOR20TA PO; +CYAN-51 PO; +DONE10TA44 PO; +FOLI1TAB16 PO; +FURO-152 PO; -GLIM1TAB3 PO; +HEPA50007 IV; +HYDR-4076 PO; +ISOS30TA9 PO; -LOSA50TA39 PO; +METO-356 PO; +METO25TA3 PO; +Nitroglycerin Sl SL; +TAMS-3 PO
[2018-12-09 13:39] LABS: BASOPHILS # (AUTO) 0.1 K/uL (0.0-8.0); BASOPHILS % (AUTO) 0.6 % (0.0-2.0); EOSINOPHILS % (AUTO) 0.1 % (0.0-7.0); HEMATOCRIT 37.1 % (36.7-47.1); HEMOGLOBIN 12.1 g/dL (12.5-16.3); LYMPHOCYTES # (AUTO) 0.6 K/uL (20.0-40.0); LYMPHOCYTES % (AUTO) 5.4 % (20.5-51.5); MEAN CORPUSCULAR HEMOGLOBIN 28.7 uug (23.8-33.4); MEAN CORPUSCULAR HGB CONC 33 g/dL (32.5-36.3); MEAN CORPUSCULAR VOLUME 88.3 fL (73.0-96.2); MONOCYTES # (AUTO) 0.7 K/uL (2.0-10.0); MONOCYTES % (AUTO) 6.1 % (0.0-11.0); NEUTROPHILS # (AUTO) 9.7 K/uL (1.8-8.9); NEUTROPHILS % (AUTO) 87.8 % (38.5-71.5); PLATELET COUNT (AUTO) 156 K/uL (152-348); WHITE BLOOD COUNT (AUTO) 11.1 K/uL (3.6-10.2)
[2018-12-09 13:48] LABS: CARBON DIOXIDE 24 mmol/L (21-32); CHLORIDE 110 mmol/L (98-107); CREATININE 2.3 mg/dL (0.6-1.3); GLUCOSE 131 mg/dL (74-106); POTASSIUM 4.4 mmol/L (3.5-5.1); UREA NITROGEN, BLOOD 28 mg/dL (7-18)
[2018-12-09] MEDS ORDERED: ESCI20TA PO (13:51)
[2018-12-09] MEDS ORDERED: GABA-534 PO (13:51)
[2018-12-09] MEDS ORDERED: MULT1TAB73 PO (13:51)
[2018-12-09] MEDS ORDERED: CALC600T12 PO (13:51)
[2018-12-09] MEDS ORDERED: MEMA10TA PO (13:51)
[2018-12-09] MEDS ORDERED: RANI300T4 PO (13:51)
[2018-12-09] MEDS ORDERED: LOSA100T31 PO (13:51)
[2018-12-09 14:01] LABS: ALANINE AMINOTRANSFERASE 8 U/L (16-63); ALKALINE PHOSPHATASE 81 U/L (50-136); ASPARTATE AMINOTRANSFERASE 7 U/L (15-37); BILIRUBIN,DIRECT 0.2 mg/dL (0.0-0.2); BILIRUBIN,TOTAL 0.8 mg/dL (0.2-1.0)
[2018-12-09] MEDS ORDERED: ASPIRIN 325 MG TABLET PO ONE (14:45)
--- NOTE | 2018-12-09 14:55 | NUR ---
[facility] hospitalist was called@[phone], pending MD/WEB CONTENT COORDINATOR callback
--- NOTE | 2018-12-09 14:56 | NUR ---
ALLI Caldera is here now.
[2018-12-09] MEDS ORDERED: HEPARIN SODIUM,PORCINE 5,000 UNITS/ML VIAL IV ONE (15:00)
[2018-12-09] MEDS ORDERED: DOXYCYCLINE HYCLATE IV 200 MG in IV DEXTROSE 5% 250 ML IV ONE (15:00)
[2018-12-09] MEDS ORDERED: ASPIRIN 325 MG TABLET ONE (15:02)
[2018-12-09] MEDS ORDERED: HEPARIN SODIUM,PORCINE 5,000 UNITS/ML VIAL ONE (15:12)
[2018-12-09] MEDS ORDERED: DOXYCYCLINE HYCLATE 100 MG INJ IV ONE (15:12)
[2018-12-09] MEDS ORDERED: ACETAMINOPHEN 325 MG TABLET PO PRN (16:00)
[2018-12-09] MEDS ORDERED: MORPHINE SULFATE 2 MG/1 ML DISP.SYRIN IV PRN (16:00)
[2018-12-09] MEDS ORDERED: Z GUARD REMEDY PASTE 57 GM TUBE TOP PRN (16:00)
[2018-12-09] MEDS ORDERED: ALBUTEROL SULFATE 2.5 MG/3 ML NEBU NEB PRN (16:00)
[2018-12-09] MEDS ORDERED: ONDANSETRON 4 MG/2 ML VIAL IV PRN (16:00)
[2018-12-09] MEDS ORDERED: MAGNESIUM HYDROXIDE 30 ML LIQUID UDC PO PRN (16:00)
[2018-12-09] MEDS ORDERED: ZOLPIDEM 5 MG TABLET PO PRN (16:00)
[2018-12-09] MEDS ORDERED: HYDROCODONE/APAP 5-325MG TABLET PO PRN (16:00)
--- NOTE | 2018-12-09 16:00 | NUR ---
Admitted 87 year old male to telemetry. Admitting dx: CHF exacerbation, NSTEMI, CAP. SR with frequent PVC on the monitor. Patient is AAOx2, forgetful. In no acute distress. Iv on left hand intact and patent. Initial admission assessment done, awaiting orders. Family at bedside. Family expressing concern for medications ordered for patient. Per daughter, considering patient history, to collaborate with primary farm equipment service technician from [facility], Dr. Herrmann before administering any cardiac meds. Called office, left message with medical records secretary to call back. Safety measures implemented. Comfort provided. Will continue to monitor.
[2018-12-09 16:13] VITALS: BP 163/86
[2018-12-09] MEDS ORDERED: DEXTROSE 50% 50 ML DISP.SYRIN IV PRN (16:45)
[2018-12-09] MEDS ORDERED: MEMANTINE HCL 10 MG TABLET PO SCH (17:00)
[2018-12-09] MEDS ORDERED: BUMETANIDE INJ 3 MG in IV DEXTROSE 5% 48 ML IV ONE (17:00)
[2018-12-09] MEDS: CEFTRIAXONE 1 G in IV DEXTROSE 5% 50 ML IV SCH (17:33)
[2018-12-09] MEDS ORDERED: AZITHROMYCIN IV 500 MG in IV DEXTROSE 5% 250 ML IV SCH (18:30)
[2018-12-09] MEDS ORDERED: CLONIDINE HCL 0.1 MG TABLET PO PRN (19:00)
[2018-12-09 20:00] VITALS: BP 150/78
[2018-12-09] MEDS ORDERED: HEPARIN SODIUM,PORCINE 5,000 UNITS/ML VIAL SQ SCH (21:00)
[2018-12-09] MEDS ORDERED: hydrALAZINE HCL 25 MG TABLET PO SCH (21:00)
[2018-12-09] MEDS ORDERED: FOLIC ACID/VITAMIN B COMP W-C TABLET PO SCH (21:00)
[2018-12-09] MEDS: ATORVASTATIN 20 MG TABLET PO SCH (21:06)
[2018-12-09] MEDS: MEMANTINE HCL 5 MG TABLET PO SCH (21:06)
[2018-12-09] MEDS: DONEPEZIL 10 MG TABLET PO SCH (21:06)
[2018-12-09] MEDS: BLOOD SUGAR DIAGNOSTIC 1 EACH STRIP VI SCH (21:14)
[2018-12-09 21:44] LABS: *BILIRUBIN,URIN NEGATIVE (NEGATIVE); *BLOOD, URINE 1+ (NEGATIVE); *CLARITY,URINE CLEAR (CLEAR); *COLOR,URINE YELLOW (YELLOW); *KETONES,URINE NEGATIVE (NEGATIVE); *UROBILINOGEN,URINE 0.2 E.U./dl (NORMAL); LEUKOCYTE ESTERASE ,URINE NEGATIVE (NEGATIVE); NITRITE, URINE NEGATIVE (NEGATIVE); UGLUCOSE NEGATIVE (NEGATIVE)
[2018-12-09 22:11] LABS: COARSE GRANULAR CASTS,URINE 0-3 /LPF; MUCUS,URINE MODERATE /LPF (0-FEW); WBC,URINE 0-3 /HPF (0-3)
[2018-12-10] VITALS: BP 162/75
--- NOTE | 2018-12-10 00:32 | NUR ---
patient bp was at 162/75 and Catapres was given PO. patient tolerated well. will continue to monitor. medication dropped on the floor by patient as pill was too small. pulled extra pill from [employer].
[2018-12-10 04:00] VITALS: BP 140/71
--- NOTE | 2018-12-10 05:43 | NUR ---
patient slept intermittently throughout the night. safety and comfort measures provided. bed in lowest position, bed alarm on, side rails upx2. all medications prescribed administered and tolerated well with no adverse effects. will endorse care accordingly to morning nurse.
[2018-12-10] MEDS: ISOSORBIDE DINITRATE 10 MG TABLET PO SCH ×3 (06:05→21:21)
[2018-12-10] MEDS: hydrALAZINE HCL 25 MG TABLET PO SCH ×3 (06:06→21:20)
[2018-12-10] MEDS: BLOOD SUGAR DIAGNOSTIC 1 EACH STRIP VI SCH ×4 (06:33→20:37)
[2018-12-10 07:24] LABS: BASOPHILS # (AUTO) 0.1 K/uL (0.0-8.0); BASOPHILS % (AUTO) 0.6 % (0.0-2.0); EOSINOPHILS # (AUTO) 0.5 K/uL (0.0-0.7); EOSINOPHILS % (AUTO) 5.1 % (0.0-7.0); HEMATOCRIT 33.1 % (36.7-47.1); HEMOGLOBIN 11.3 g/dL (12.5-16.3); LYMPHOCYTES # (AUTO) 0.9 K/uL (20.0-40.0); LYMPHOCYTES % (AUTO) 10.3 % (20.5-51.5); MEAN CORPUSCULAR HEMOGLOBIN 29.7 uug (23.8-33.4); MEAN CORPUSCULAR HGB CONC 34 g/dL (32.5-36.3); MEAN CORPUSCULAR VOLUME 87.4 fL (73.0-96.2); MONOCYTES # (AUTO) 0.7 K/uL (2.0-10.0); MONOCYTES % (AUTO) 7.4 % (0.0-11.0); NEUTROPHILS % (AUTO) 76.6 % (38.5-71.5); PLATELET COUNT (AUTO) 150 K/uL (152-348); RED BLOOD CELL COUNT(AUTO) 3.79 MIL/uL (4.06-5.63); WHITE BLOOD COUNT (AUTO) 9.1 K/uL (3.6-10.2)
--- NOTE | 2018-12-10 07:30 | NUR ---
RECEIVED PT. PT RESTING COMFORTABLY. NO ACUTE DISTRESS OR SOB NOTED. BED ALARM ON. CALL LIGHT WITHIN REACH. WILL CONTINUE TO MONITOR.
[2018-12-10 07:38] LABS: THYROID STIMULATING HORMONE 0.609 mIU/mL (0.358-3.740)
[2018-12-10 07:41] LABS: ALANINE AMINOTRANSFERASE 8 U/L (16-63); ALKALINE PHOSPHATASE 70 U/L (50-136); ASPARTATE AMINOTRANSFERASE 6 U/L (15-37); BILIRUBIN,TOTAL 0.7 mg/dL (0.2-1.0); CARBON DIOXIDE 27 mmol/L (21-32); CHLORIDE 109 mmol/L (98-107); CHOLESTEROL 117 mg/dL (<200); CREATININE 2.4 mg/dL (0.6-1.3); GLUCOSE 101 mg/dL (74-106); HDL CHOLESTEROL 54 mg/dL (40-60); MAGNESIUM 1.7 mg/dL (1.8-2.4); PHOSPHOROUS 3.5 mg/dL (2.5-4.9); POTASSIUM 3.9 mmol/L (3.5-5.1); TOTAL PROTEIN, SERUM 6.2 g/dL (6.4-8.2); TRIGLYCERIDES 46 MG/DL (30-150); UREA NITROGEN, BLOOD 32 mg/dL (7-18)
[2018-12-10] MEDS ORDERED: MAGNESIUM OXIDE 400 MG TABLET PO ONE (08:00)
[2018-12-10] MEDS ORDERED: CYANOCOBALAMIN 100 MCG TABLET PO SCH (09:00)
[2018-12-10] MEDS ORDERED: Medication Not On Formulary EA (Multivitamins (Multivitamin) 1 EACH) PO SCH (09:00)
[2018-12-10] MEDS ORDERED: Medication Not On Formulary EA (Escitalopram Oxalate (Lexapro) 20 MG) PO SCH (09:00)
[2018-12-10] MEDS ORDERED: ISOSORBIDE MONONITRATE 30 MG TAB.SR.24H PO SCH (09:00)
[2018-12-10] MEDS ORDERED: Medication Not On Formulary EA (Losartan Potassium 100 MG) PO SCH (09:00)
[2018-12-10] MEDS ORDERED: METOPROLOL SUCCINATE XL 25 MG TAB.SR.24H PO SCH (09:00)
[2018-12-10] MEDS ORDERED: LOSARTAN POTASSIUM 50 MG TABLET PO SCH (09:00)
[2018-12-10] MEDS ORDERED: CLOPIDOGREL 75 MG TABLET PO SCH (09:00)
[2018-12-10] MEDS ORDERED: FUROSEMIDE 40 MG/4 ML VIAL IV SCH (09:00)
[2018-12-10] MEDS: CHOLECALCIFEROL 1,000 UNIT TABLET PO SCH (09:34)
[2018-12-10] MEDS: CALCIUM CARBONATE 600 MG TABLET PO SCH (09:35)
[2018-12-10] MEDS: CARVEDILOL 6.25 MG TABLET PO SCH ×2 (09:37→18:00)
[2018-12-10] MEDS: MULTIVITAMINS,THERAPEUTIC TABLET PO SCH (09:37)
[2018-12-10] MEDS: CLOPIDOGREL 75 MG TABLET PO SCH (09:37)
[2018-12-10] MEDS: MEMANTINE HCL 5 MG TABLET PO SCH ×2 (09:37→20:34)
[2018-12-10] MEDS: GABAPENTIN 300 MG CAPSULE PO SCH (09:37)
[2018-12-10] MEDS: ASPIRIN 81 MG TAB.CHEW PO SCH (09:48)
[2018-12-10] MEDS: ESCITALOPRAM OXALATE 10 MG TABLET PO SCH (09:48)
[2018-12-10] MEDS: FAMOTIDINE 20 MG TABLET PO SCH (10:00)
[2018-12-10 11:44] VITALS: BP 112/58
[2018-12-10 11:48] VITALS: BP 111/52
--- NOTE | 2018-12-10 12:00 | NUR ---
PT IS MEDICATION COMPLIANT. NO SOB OR ACUTE DISTRESS NOTED. CALL LIGHT WITHIN REACH. BED IN LOW POSITION. PT A+O X 3. PT COOPERATIVE. PT STATES HAVING NO PAIN AT THIS TIME. SINUS ROSS. WILL CONTINUE TO MONITOR.
--- NOTE | 2018-12-10 15:20 | NUR ---
LAB CALLED WITH CRITICAL VALUE. TROPONIN 1.028. INFORMED. CC NOTED UPDATED. RETURNED CALL ORDERING AM TROPONIN 0600 12/11/18
[2018-12-10 15:43] VITALS: BP 113/46
--- NOTE | 2018-12-10 18:00 | NUR ---
PT PLACED ON AIR MATTRESS. PT MEDICATION COMPLIANT. CALL LIGHT WITHIN REACH. BED IN LOW POSITION. PT ASSISTED TO BATHROOM. NO SOB OR ACUTE DISTRESS NOTED. WILL ENDORSE TO INCOMING SHIFT ACCORDINGLY.
[2018-12-10] MEDS: CEFTRIAXONE 1 G in IV DEXTROSE 5% 50 ML IV SCH (18:05)
--- NOTE | 2018-12-10 19:15 | NUR ---
Received patient in bed resting comfortably, A&Ox3. Not in distress at this time. No complaints of pain. Bed kept in low and locked position w/ side rails up x 2. Call light within reach. Will continue to monitor
[2018-12-10 20:00] VITALS: BP 120/69
[2018-12-10] MEDS: ATORVASTATIN 20 MG TABLET PO SCH (20:34)
[2018-12-10] MEDS: DONEPEZIL 10 MG TABLET PO SCH (20:34)
[2018-12-10] MEDS: INSULIN REGULAR, HUMAN 300 UNIT/3 ML VIAL SQ PRN (20:45)
[2018-12-11] VITALS: BP 106/61
[2018-12-11 04:00] VITALS: BP 146/74
[2018-12-11] MEDS: ISOSORBIDE DINITRATE 10 MG TABLET PO SCH ×2 (06:14→14:10)
[2018-12-11] MEDS: hydrALAZINE HCL 25 MG TABLET PO SCH ×2 (06:15→14:10)
[2018-12-11] MEDS: BLOOD SUGAR DIAGNOSTIC 1 EACH STRIP VI SCH ×2 (06:25→12:15)
--- NOTE | 2018-12-11 06:35 | NUR ---
Patient slept through out the night. Not in distress at this time. All needs attended. Will endorse accordingly
[2018-12-11 06:47] LABS: CARBON DIOXIDE 25 mmol/L (21-32); CHLORIDE 107 mmol/L (98-107); CREATININE 2.5 mg/dL (0.6-1.3); GLUCOSE 85 mg/dL (74-106); MAGNESIUM 1.8 mg/dL (1.8-2.4); POTASSIUM 3.6 mmol/L (3.5-5.1); UREA NITROGEN, BLOOD 35 mg/dL (7-18)
[2018-12-11 07:04] LABS: BASOPHILS # (AUTO) 0.1 K/uL (0.0-8.0); BASOPHILS % (AUTO) 0.8 % (0.0-2.0); EOSINOPHILS % (AUTO) 12.2 % (0.0-7.0); HEMATOCRIT 33.1 % (36.7-47.1); HEMOGLOBIN 11.2 g/dL (12.5-16.3); LYMPHOCYTES # (AUTO) 1.3 K/uL (20.0-40.0); LYMPHOCYTES % (AUTO) 16.2 % (20.5-51.5); MEAN CORPUSCULAR HEMOGLOBIN 29.8 uug (23.8-33.4); MEAN CORPUSCULAR HGB CONC 34 g/dL (32.5-36.3); MEAN CORPUSCULAR VOLUME 87.8 fL (73.0-96.2); MONOCYTES # (AUTO) 0.6 K/uL (2.0-10.0); MONOCYTES % (AUTO) 7.7 % (0.0-11.0); NEUTROPHILS # (AUTO) 4.9 K/uL (1.8-8.9); NEUTROPHILS % (AUTO) 63.1 % (38.5-71.5); PLATELET COUNT (AUTO) 134 K/uL (152-348); RED BLOOD CELL COUNT(AUTO) 3.77 MIL/uL (4.06-5.63); WHITE BLOOD COUNT (AUTO) 7.8 K/uL (3.6-10.2)
--- NOTE | 2018-12-11 07:18 | NUR ---
Endorsed to morning shift nurse regarding critical lab result of Troponin 0.828. Current result is trending down from 1.028 yesterday
--- NOTE | 2018-12-11 07:45 | NUR ---
Received patient awake in bed. AAOx3, forgetful. In no acute distress. Denies pain at this time. Safety measures implemented. IV intact and patent. Call light within reach. Will continue to monitor.
[2018-12-11] MEDS: CARVEDILOL 6.25 MG TABLET PO SCH (08:00)
[2018-12-11] MEDS ORDERED: LISINOPRIL 5 MG TABLET PO SCH (09:00)
[2018-12-11] MEDS ORDERED: FUROSEMIDE 40 MG TABLET PO SCH ×2 (09:00)
[2018-12-11] MEDS: CALCIUM CARBONATE 600 MG TABLET PO SCH (09:13)
[2018-12-11] MEDS: ESCITALOPRAM OXALATE 10 MG TABLET PO SCH (09:14)
[2018-12-11] MEDS: CHOLECALCIFEROL 1,000 UNIT TABLET PO SCH (09:14)
[2018-12-11] MEDS: FAMOTIDINE 20 MG TABLET PO SCH (09:14)
[2018-12-11] MEDS: GABAPENTIN 300 MG CAPSULE PO SCH (09:14)
[2018-12-11] MEDS: MULTIVITAMINS,THERAPEUTIC TABLET PO SCH (09:14)
[2018-12-11] MEDS: CLOPIDOGREL 75 MG TABLET PO SCH (09:15)
[2018-12-11] MEDS: MEMANTINE HCL 5 MG TABLET PO SCH (09:15)
[2018-12-11] MEDS: ASPIRIN 81 MG TAB.CHEW PO SCH (09:15)
[2018-12-11] MEDS ORDERED: LISI2.5T2 PO (10:20)
[2018-12-11] MEDS ORDERED: FURO-151 PO (10:20)
[2018-12-11 11:16] VITALS: BP 112/46
[2018-12-11] MEDS: INSULIN REGULAR, HUMAN 300 UNIT/3 ML VIAL SQ PRN (12:19)
[2018-12-11 14:10] VITALS: BP 127/64
--- NOTE | 2018-12-11 14:33 | NUR ---
WOUND CARE CONSULT: PT PRESENTS WITH SCAR TO LEFT BUTTOCK AND INCONTINENCE ASSOCIATED SKIN DAMAGE TO GLUTEAL CREASE WITH SOME SKIN STAINING OF INNER BUTTOCKS, PRESENT ON ADMISSION. RECOMMENDATIONS MADE FOR SKIN PROTECTION. DISCUSSED WITH NURSING STAFF. WILL SEE PRN. LUCERO IN AGREEMENT WITH PLAN OF CARE. CURRENT CARLOS SCORE IS 17. Addendum: 12/11/18 at 1437 by KAT CAVAZOS RN Amended: Links added.
--- NOTE | 2018-12-11 14:35 | NUR ---
Patient refuse pictures despite education on protective measures on gluteal crease due to incontinence. Patient to be discharged home. Wound care provided.
--- NOTE | 2018-12-11 14:40 | NUR ---
Orders for discharged back to home with home health in place. Vital signs stable. In no acute distress. Denies pain or discomfort at this time. No SOB noted. Exit care given, education provided on continuity of care. Armband and ID removed. Patient d/c home with daughter via private car.
== END 2018-12-11 14:40 | disposition home health service (06) | DRG 280 ==
LOC: ER 13:07 → TELE3 15:32
PROVIDERS: ADMIT Nurse Practitioner Acute Care; ATTEND Nurse Practitioner Acute Care
DX: I13.0 Hypertensive heart and chronic kidney disease with heart failure and stage 1 through stage 4 chronic kidney disease, or unspecified chronic kidney disease (principal); I50.23 Acute on chronic systolic (congestive) heart failure; I21.A1 Myocardial infarction type 2; J96.01 Acute respiratory failure with hypoxia; N17.0 Acute kidney failure with tubular necrosis; E44.0 Moderate protein-calorie malnutrition; N18.4 Chronic kidney disease, stage 4 (severe); I25.10 Atherosclerotic heart disease of native coronary artery without angina pectoris; Z95.5 Presence of coronary angioplasty implant and graft; I25.5 Ischemic cardiomyopathy; F01.50 Vascular dementia, unspecified severity, without behavioral disturbance, psychotic disturbance, mood disturbance, and anxiety; Z86.73 Personal history of transient ischemic attack (TIA), and cerebral infarction without residual deficits; N40.0 Benign prostatic hyperplasia without lower urinary tract symptoms; E78.5 Hyperlipidemia, unspecified; E11.22 Type 2 diabetes mellitus with diabetic chronic kidney disease; E11.65 Type 2 diabetes mellitus with hyperglycemia; Z79.02 Long term (current) use of antithrombotics/antiplatelets; Z83.3 Family history of diabetes mellitus; Z82.49 Family history of ischemic heart disease and other diseases of the circulatory system; I25.2 Old myocardial infarction; Z87.891 Personal history of nicotine dependence; Z95.828 Presence of other vascular implants and grafts; Z86.718 Personal history of other venous thrombosis and embolism; Z79.899 Other long term (current) drug therapy; I48.91 Unspecified atrial fibrillation
CPT/HCPCS: 36415; 70030-TC; 71045; 83605; 83735; 84100; 84443; 85025; 85730; 87040; 87086; 93005; A4663; G0378; J0696; J1644; J1815; J1940; J3490; J7030; J7040; J7050; J7060

== ENCOUNTER 2019-11-15 18:22 | Emergency (ER) | payer MEDICARE, OTHER ==
[~2019-11-15] VITALS: Ht 167.6 cm; Wt 79.4 kg
[~2019-11-15 18:22] MED LIST changes: +CALC600T35 PO; -CLOP75TA33 PO; -CYAN-51 PO; +ESCI20TA PO; -FOLI1TAB16 PO; +FURO-151 PO; -FURO-152 PO; +GABA-534 PO; -HEPA50007 IV; -HYDR-4076 PO; -ISOS30TA9 PO; +LISI2.5T2 PO; +LOSA100T31 PO; +MEMA10TA PO; -METO-356 PO; -METO25TA3 PO; +MULT-594 PO; -Nitroglycerin Sl SL; +RANI300T4 PO; -TAMS-3 PO
[2019-11-15] MEDS ORDERED: IV NORMAL SALINE 1000 ML BAG IV ONE (18:30)
[2019-11-15] MEDS ORDERED: ONDANSETRON 4 MG/2 ML VIAL IV ONE ×2 (18:30→18:45)
[2019-11-15] MEDS ORDERED: MORPHINE SULFATE 4 MG/1 ML DISP.SYRIN ONE (18:36)
[2019-11-15] MEDS ORDERED: ONDANSETRON 4 MG/2 ML VIAL ONE (18:36)
[2019-11-15] MEDS ORDERED: MORPHINE SULFATE 2 MG/1 ML DISP.SYRIN IV ONE (18:45)
[2019-11-15 18:59] LABS: BASOPHILS # (AUTO) 0.1 K/uL (0.0-8.0); BASOPHILS % (AUTO) 0.7 % (0.0-2.0); EOSINOPHILS % (AUTO) 0.3 % (0.0-7.0); HEMATOCRIT 35.6 % (36.7-47.1); HEMOGLOBIN 11.6 g/dL (12.5-16.3); LYMPHOCYTES # (AUTO) 0.5 K/uL (20.0-40.0); LYMPHOCYTES % (AUTO) 6.8 % (20.5-51.5); MEAN CORPUSCULAR HEMOGLOBIN 28.5 uug (23.8-33.4); MEAN CORPUSCULAR HGB CONC 33 g/dL (32.5-36.3); MEAN CORPUSCULAR VOLUME 87.4 fL (73.0-96.2); MONOCYTES # (AUTO) 0.3 K/uL (2.0-10.0); MONOCYTES % (AUTO) 4.1 % (0.0-11.0); NEUTROPHILS # (AUTO) 6.9 K/uL (1.8-8.9); NEUTROPHILS % (AUTO) 88.1 % (38.5-71.5); PLATELET COUNT (AUTO) 145 K/uL (152-348); RED BLOOD CELL COUNT(AUTO) 4.07 MIL/uL (4.06-5.63); WHITE BLOOD COUNT (AUTO) 7.9 K/uL (3.6-10.2)
[2019-11-15 19:00] LABS: CARBON DIOXIDE 22 mmol/L (21-32); CHLORIDE 108 mmol/L (98-107); CREATININE 2.1 mg/dL (0.6-1.3); GLUCOSE 142 mg/dL (74-106); POTASSIUM 3.5 mmol/L (3.5-5.1); UREA NITROGEN, BLOOD 23 mg/dL (7-18)
[2019-11-15 19:07] LABS: ALANINE AMINOTRANSFERASE 13 U/L (16-63); ALKALINE PHOSPHATASE 81 U/L (50-136); ASPARTATE AMINOTRANSFERASE 19 U/L (15-37); BILIRUBIN,DIRECT 0.2 mg/dL (0.0-0.2); BILIRUBIN,TOTAL 0.7 mg/dL (0.2-1.0); LIPASE 494 U/L (73-393); TOTAL PROTEIN, SERUM 6.9 g/dL (6.4-8.2)
--- NOTE | 2019-11-15 19:18 | NUR ---
MD Valdivia noted assessing patient at this time
[2019-11-15] MEDS ORDERED: METO25TA3 PO (20:19)
[2019-11-15] MEDS ORDERED: FOLI1TAB16 PO (20:19)
[2019-11-15] MEDS ORDERED: CLOP75TA15 PO (20:19)
[2019-11-15] MEDS ORDERED: [UNRECOGNIZED DRUG - REMARK] (20:19)
[2019-11-15] MEDS ORDERED: HYDR25TA86 PO (20:19)
[2019-11-15] MEDS ORDERED: ISOS30TA PO (20:19)
--- NOTE | 2019-11-15 20:27 | NUR ---
Patient resting in bed with eyes closed, no signs of acute distress noted, no complaints of pain at this time, all needs met
--- NOTE | 2019-11-15 20:45 | NUR ---
VICTORINO on the line with Shreya for possible consult of patient case.
--- NOTE | 2019-11-15 21:00 | NUR ---
MINNIE LUCERO on the line with patients PCP for possible transfer to [facility]
--- NOTE | 2019-11-15 21:20 | NUR ---
Cinda from [facility] states that Dr. Herrmann will gladly accept the patient, but unfortunately the hospital is at capacity so patient will not be able to be transferred over till tomorrow. Cinda suggests that we should admit the patient to the hospital and do an inpatient to inpatient transfer possibly tomorrow.
[2019-11-15 22:03] LABS: *BILIRUBIN,URIN NEGATIVE (NEGATIVE); *CLARITY,URINE CLEAR (CLEAR); *COLOR,URINE YELLOW (YELLOW); *KETONES,URINE NEGATIVE (NEGATIVE); *UROBILINOGEN,URINE 0.2 E.U./dl (NORMAL); LEUKOCYTE ESTERASE ,URINE NEGATIVE (NEGATIVE); NITRITE, URINE NEGATIVE (NEGATIVE); UGLUCOSE NEGATIVE (NEGATIVE)
--- NOTE | 2019-11-15 22:05 | NUR ---
urine collected and sent to lab at this time, no signs of distress noted at this time, no compaints of pain, will continue to monitor
[2019-11-15 22:06] LABS: *BLOOD, URINE TRACE (NEGATIVE)
[2019-11-15 22:12] LABS: BACTERIA,URINE NONE SEEN /HPF (NONE SEEN); SQUAMOUS EPITHELIAL CELL,UR FEW /HPF (NONE SEEN); WBC,URINE 0-3 /HPF (0-3)
--- NOTE | 2019-11-15 23:33 | NUR ---
Patient's daughter does not wish to proceed with medical care recommended by Dr. Valdivia. Patient and daughter given information related to possible complications, up to and including , which could occur as a result of leaving the hospital at this time. Patient verbalizes understanding of risks involved due to leaving against medical advice. Patient's daughter has signed AMA form. Patient's daughter refuses to have her father be admitted to the hospital, and does not want to wait till the morning.
[2019-11-16 00:04] VITALS: BP 145/73
== END 2019-11-16 00:04 | disposition left against medical advice (07) ==
LOC: ER 18:24
DX: R19.7 Diarrhea, unspecified (principal); I81 Portal vein thrombosis; R10.9 Unspecified abdominal pain; K76.9 Liver disease, unspecified; J90 Pleural effusion, not elsewhere classified; J44.9 Chronic obstructive pulmonary disease, unspecified; F03.90 Unspecified dementia, unspecified severity, without behavioral disturbance, psychotic disturbance, mood disturbance, and anxiety; Z79.02 Long term (current) use of antithrombotics/antiplatelets; Z79.899 Other long term (current) drug therapy; H91.90 Unspecified hearing loss, unspecified ear; J98.11 Atelectasis; Z90.49 Acquired absence of other specified parts of digestive tract; I25.2 Old myocardial infarction; E11.22 Type 2 diabetes mellitus with diabetic chronic kidney disease; N18.9 Chronic kidney disease, unspecified; E27.9 Disorder of adrenal gland, unspecified
CPT/HCPCS: 36415; 71045; 74176; 76700; 80048; 80076; 81001; 83690; 85025; 93005; 96361; 96374; 96375; 99285; J2270; J2405; A4663; J7030